=== PATIENT | male | born 1970 | race Two or more races ===

== ENCOUNTER 2024-09-26 17:23 | Inpatient (IN) | payer OTHER ==
[~2024-09-26] VITALS: Ht 162.6 cm; Wt 100.0 kg
--- NOTE | 2024-09-26 17:45 | ED.PDOC ---
History of Present Illness HPI Comments 53-year-old male brought in by EMS presents with a chief complaint of deformity to left leg s/p fall. Patient was standing on a generator changing the AC unit when he slipped and fell to the ground. Patient states that the unit fell onto his leg. Patient has an obvious deformity to his left leg. Patient was given 100mcg of Fentanyl by EMS. Chief Complaint: Fall Injury Time Seen by MD: 17:32 Reviewed Notes: Nurses Notes, Medications, Allergies Allergies: Coded Allergies: NO KNOWN ALLERGIES (Unverified , 09/26/24) Information Source: Patient, Emergency Med Personnel Mode of Arrival: Ambulatory Severity: Moderate Timing: Minutes Duration: Since onset Prehospital treatment: Box Spring Maker, Oxygen, Pain Meds, Treatment Past Medical History PAST MEDICAL HISTORY: Denies Surgical History: Denies all surgeries Family History Family History: Reviewed,noncontributory to illness Social History Smoker: Non-Smoker Alcohol: Occasionally Drugs: Denies Drug Use Lives In: Home Constitutional: denies: chills, diaphoresis, fatigue, fever, malaise, sweats, weakness, others EENTM: denies: blurred vision, double vision, ear bleeding, ear discharge, ear drainage, ear pain, ear ringing, eye pain, eye redness, hearing loss, mouth pain, mouth swelling, nasal discharge, nose bleeding, nose congestion, nose pain, photophobia, tearing, throat pain, throat swelling, voice changes, others Respiratory: denies: cough, hemoptysis, orthopnea, SOB at rest, shortness of breath, SOB with excertion, stridor, wheezing, others Cardiovascular: denies: chest pain, dizzy spells, diaphoresis, Dyspnea on exertion, edema, irregular heart beat, left arm pain, lightheadedness, palpitations, PND, syncope, others Gastrointestinal: denies: abdomen distended, abdominal pain, blood streaked bowels, constipated, diarrhea, dysphagia, difficulty swallowing, hematemesis, melena, nausea, poor appetite, poor fluid intake, rectal bleeding, rectal pain, vomiting, others Genitourinary: denies: burning, dysuria, flank pain, frequency, hematuria, incontinence, penile discharge, penile sore, pain, testicle pain, testicle swelling, urgency, others Neurological: denies: dizziness, fainting, headache, left sided numbness, left sided weakness, numbness, paresthesia, pre-existing deficit, right sided numbness, right sided weakness, seizure, speech problems, tingling, tremors, weakness, others Musculoskeletal: denies: back pain, gout, joint pain, joint swelling, muscle pain, muscle stiffness, neck pain, others Integumetry: reports: wounds (OBVIOUS DEFORMITY TO LEFT LEG); denies: bruises, change in color, change in hair/nails, dryness, laceration, lesions, lumps, rash, others Allergic/Immunocompromised: denies: Difficulty Healing, Frequent Infections, Hives, Itching, others Hematologic/Lymphatic: denies: anemia, blood clots, easy bleeding, easy brui sing, swollen glands, others Endocrine: denies: excessive hunger, excessive sweating, excessive thirst, ex cessive urination, flushing, intolerance to cold, intolerance to heat, unexplained weight gain, unexplained weight loss, others Psychiatric: denies: anxiety, bipolar disorder, depression, hopeless, panic disorder, schizophrenia, sleepless, suicidal, others All Other Systems: Reviewed and Negative Physical Exam General Appearance: Moderate Distress HEENT: Normal ENT Inspection, Pharynx Normal, TMs Normal Neck: Full Range of Motion, Non-Tender, Normal, Normal Inspection Respiratory: Chest Non-Tender, Lungs Clear, No Accessory Muscle Use, No Respiratory Distress, Normal Breath Sounds Cardiovascular: No Edema, No JVD, No Murmur, No Gallop, Normal Peripheral Pulses, Regular Rate/Rhythm Breast Exam: Deferred Gastrointestinal: No Organomegaly, Non Tender, No Pulsatile Mass, Normal Bowel Sounds, Soft Genitalia: Deferred Pelvic: Deferred Rectal: Deferred Extremities: No calf tenderness, Normal capillary refill, No pedal edema Musculoskeletal : Location: Left Extremity Location: Knee Apperance: Swelling, Deformity, Limited ROM, Tenderness: Severe Neurologic: Alert, apprentice cook II-XII nml as Tested, No Motor Deficits, Normal Affect, Normal Mood, No Sensory Deficits Cerebellar Function: Normal Reflexes: Normal Skin: Dry, Normal Color, Warm Lymphatic: No Adenopathy Was a procedure done? Was a procedure done?: No Differential Dx Considerations may include: Fracture, strain, contusion, dislocation X-Ray, Labs, Meds, VS Vital Signs Date Time Temp Pulse Resp B/P (MAP) Pulse Ox O2 Delivery O2 Flow Rate FiO2 09/26/24 19:44 62 12 128/71 09/26/24 18:00 Room Air* 0 21 09/26/24 18:00 98.0 60 20 134/73 (93) 95 98.0 09/26/24 17:45 98.8 64 18 119/76 (90) 94 98.8 Lab Test 09/26/24 18:02 Range/Units White Blood Count 12.1 H 4.4-10.8 10^3/uL Red Blood Count 5.03 4.5-5.90 10^6/uL Hemoglobin 16.4 13.5-17.5 g/dL Hematocrit 46.5 41.0-53.0 % Mean Corpuscular Volume 92.5 80.0-100.0 fL Mean Corpuscular Hemoglobin 32.7 H 28.0-32.0 pg Mean Corpuscular Hemoglobin Concent 35.3 32.0-36.0 g/dL Red Cell Distribution Width 13.3 11.8-14.3 % Platelet Count 220 140-450 10^3/uL Mean Platelet Volume 8.9 6.9-10.8 fL Neutrophils (%) (Auto) 78.6 37.0-80.0 % Lymphocytes (%) (Auto) 12.4 10.0-50.0 % Monocytes (%) (Auto) 7.5 0.0-12.0 % Eosinophils (%) (Auto) 1.1 0.0-7.0 % Basophils (%) (Auto) 0.4 0.0-2.0 % Neutrophils # (Auto) 9.5 H 1.6-8.6 10 ^3/uL Lymphocytes # (Auto) 1.5 0.4-5.4 10 ^3/uL Monocytes # (Auto) 0.9 0-1.3 10 ^3/uL Eosinophils # (Auto) 0.1 0-0.8 10 ^3/uL Basophils # (Auto) 0 0-0.2 10 ^3/uL Nucleated Red Blood Cells 0.0 % Prothrombin Time 10.3 9.3-11.8 sec Prothrombin Time INR 0.97 0.9-1.15 Activated Partial Thromboplast Time 24.8 24.5-34.5 SEC Sodium Level 139 136-145 mmol/L Potassium Level 4.0 3.5-5.1 mmol/L Chloride Level 104 98-107 mmol/L Carbon Dioxide Level 24 20-31 mmol/L Anion Gap 11 5-15 Blood Urea Nitrogen 13 9-23 mg/dL Creatinine 1.04 0.700-1.30 mg/dL Glomerular Filtration Rate Calc 87 >90 mL/min BUN/Creatinine Ratio 12.5 10.0-20.0 Serum Glucose 220 H 74-106 mg/dL Calcium Level 9.4 8.7-10.4 mg/dL Current Medications Medications (Trade) Dose Ordered Sig/Ilan Route Start Time Stop Time Status Last Admin Sodium Chloride 500 ml @ 500 mls/hr Q1H ONCE IV 09/26/24 17:45 09/26/24 18:44 DC 09/26/24 18:00 Hydromorphone HCl (Dilaudid Injection) 1 mg ONCE ONCE IV 09/26/24 19:15 09/26/24 19:16 DC 09/26/24 19:44 Ondansetron HCl (Zofran) 4 mg ONCE ONCE IV 09/26/24 19:15 09/26/24 19:16 DC 09/26/24 19:43 IV Hep-Lock was established The patient was given Dilaudid 1 mg IV push for the pain The patient was given Zofran 4 mg IV push for the nausea The patient was given normal saline at a 500 cc bolus The CBC shows an elevated white blood cell count of 12.1 The rest of the CBC and INR within normal limits X-ray of the left knee shows: FINDINGS/IMPRESSION: There is a displaced fracture extending from the lateral tibial plateau to the medial wall of the proximal tibia proximally 3-4 mm distal to the medial tibial plateau. Nondisplaced fracture of the proximal fibula. The visualized joint space is well maintained. The alignment is anatomical. There is no radiopaque foreign body. An orthopedic surgery consult will be obtained. The patient is being admitted Images Reviewed?: Images reviewed and evaluated by me Time of 1ST Reevaluation: 18:02 Reevaluation 1ST: Unchanged Patient Education/Counseling: Diagnosis, Treatment, Prognosis Family Education/Counseling: Diagnosis, Treatment Departure 1 Departure Time of Disposition: 20:25 Impression: Primary Impression: Tibial plateau fracture, left Qualified Codes: S82.142A - Displaced bicondylar fracture of left tibia, initial encounter for closed fracture Additional Impression: History of fall Disposition: ADMITTED INPATIENT Admit to: Med Surg Condition: Fair Critical Care Note Critical Care Time?: No Stability Stability form required: Yes Unstable for transfer: ED Physician Assesment (Clinical assesment) Heart Score Heart Score: Heart Score Response (Comments) Value History N/A 0 EKG N/A 0 Age N/A 0 Risk Factors N/A 0 Troponin N/A 0 Total 0 I personally scribed for KAM FAGAN MD ([email or web address]) on 09/26/24 at 17:45. Electronically submitted by Raad Gautam ([email or web address]). KAM FAGAN MD Sep 26, 2024 17:45
[2024-09-26] MEDS: SODIUM CHLORIDE 0.9% 500 ML IV ONE (18:00)
[2024-09-26 18:41] LABS: Chloride 104 mmol/L (98-107); Sodium 139 mmol/L (136-145)
[2024-09-26 18:42] LABS: Anion Gap 11 (5-15); Carbon Dioxide 24 mmol/L (20-31)
[2024-09-26 18:43] LABS: Calcium 9.4 mg/dL (8.7-10.4)
[2024-09-26 18:47] LABS: Basophils # (auto) 0 10 ^3/uL (0-0.2); Basophils % (auto) 0.4 % (0.0-2.0); Eosinophils # (auto) 0.1 10 ^3/uL (0-0.8); Eosinophils % (auto) 1.1 % (0.0-7.0); Hematocrit 46.5 % (41.0-53.0); Hemoglobin 16.4 g/dL (13.5-17.5); Lymphocytes # (auto) 1.5 10 ^3/uL (0.4-5.4); Lymphocytes % (auto) 12.4 % (10.0-50.0); Mean Corpuscular Hemoglobin 32.7 pg (28.0-32.0); Mean Corpuscular Hgb Conc. 35.3 g/dL (32.0-36.0); Mean Corpuscular Volume 92.5 fL (80.0-100.0); Monocytes # (auto) 0.9 10 ^3/uL (0-1.3); Monocytes % (auto) 7.5 % (0.0-12.0); Neutrophils # (auto) 9.5 10 ^3/uL (1.6-8.6); Neutrophils % (auto) 78.6 % (37.0-80.0); Platelet Count (auto) 220 10^3/uL (140-450); Red Blood Cells 5.03 10^6/uL (4.5-5.90); Red Cell Distribution Width 13.3 % (11.8-14.3); White Blood Cell 12.1 10^3/uL (4.4-10.8)
[2024-09-26 18:49] LABS: Glucose 220 mg/dL (74-106)
--- NOTE | 2024-09-26 18:52 | DVH ---
CLINICAL INDICATION: fall TECHNIQUE: 3 radiographic views of the left knee were obtained. Comparison: None FINDINGS/IMPRESSION: There is a displaced fracture extending from the lateral tibial plateau to the medial wall of the pro ximal tibia proximally 3-4 mm distal to the medial tibial plateau. Nondisplaced fracture of the proximal fibula. The visualized joint space is well maintained. The alignment is anatomical. There is no radiopaque foreign body.
[2024-09-26 18:58] LABS: INR 0.97 (0.9-1.15); Partial Thromboplastin Time 24.8 SEC (24.5-34.5); Prothrombin Time 10.3 sec (9.3-11.8)
[2024-09-26 19:06] LABS: BUN/Creatinine Ratio 12.5 (10.0-20.0); Blood Urea Nitrogen 13 mg/dL (9-23)
[2024-09-26 19:15] VITALS: O2SAT 95
[2024-09-26] MEDS: ONDANSETRON HCL 4 MG/2 ML VIAL IV ONE (19:43)
[2024-09-26] MEDS: HYDROmorphone HCL 2 MG/ML VL/or syr IV ONE (19:44)
[2024-09-26] MEDS ORDERED: ONDANSETRON HCL 4 MG/2 ML VIAL IV PRN (23:15)
[2024-09-26] MEDS ORDERED: MORPHINE SULFATE INJ 2 MG/ml SYRG IV PRN (23:15)
[2024-09-26] MEDS: SODIUM CHLORIDE 0.9% 1,000 ML IV ONE (23:33)
[2024-09-27] VITALS (9 sets, daily range): BP systolic 106–127; BP diastolic 62–80; PULSE 52–82; RESP 16–20; TEMP 97.3–98.5; O2SAT 95–99
[2024-09-27] MEDS: KETOROLAC TROMETH 30 MG/ML 1ML VIAL IV PRN ×2 (00:04→10:14)
--- NOTE | 2024-09-27 02:45 | DVHHPRES ---
History of Present Illness Resident Creating Document: WILBER GARCIA RESIDENT History of Present Illness Patient is a 53-year-old male with no significant past medical history presented to the ED with a chief complaint of left lower extremity pain. Patient reported he was trying to get something kept on a shelf while climbing onto which generator and he slipped and the generator felt on his left knee following which he had severe onset pain and was not able to lift the leg following which she came to the hospital. Left leg was placed in a splint in the ER. Past medical history: None Past surgical history: None Social history: Denied smoking, occasional alcohol, no drug usage No home medications Review of Systems Review of Systems Patient seen and examined at the bedside Left lower extremity in his splint and bandaged Patient is unable to lift the left leg at the hip joint Reports [id number] pain Allergies: Coded Allergies: NO KNOWN ALLERGIES (Unverified , 09/26/24) Medications Current Medications Medications Dose Ordered Sig/Ilan Route Start Time Stop Time Status Last Admin Dose Admin Ketorolac Tromethamine 15 mg Q6HPRN PRN IV 09/26/24 23:15 10/01/24 23:14 09/27/24 00:04 15 MG Morphine Sulfate 2 mg Q6HPRN PRN IV 09/26/24 23:15 Acetaminophen 650 mg Q6HP PRN PO 09/26/24 23:15 Ondansetron HCl 4 mg Q6HPRN PRN IV 09/26/24 23:15 Exam Vital Signs Vital Signs Date Time Temp Pulse Resp B/P (MAP) Pulse Ox O2 Delivery O2 Flow Rate FiO2 09/26/24 23:00 55 12 136/55 (82) 98 09/26/24 19:15 Room Air* 0 21 09/26/24 19:00 98.2 98.2 Exam Gen - no pallor, no icterus, no cyanosis, no clubbing, no LAD, no edema . Skin - Patients skin is warm and dry. HEENT - normocephalic, atraumatic, moist mucous membranes. Neck - full ROM, no LAD, no JVD Pulmonary - B/L equal breath sounds, no crackles, no wheezing, no stridor. cardiovascular - regular S1,S2 heard, no added sounds, no murmurs heard. peripheral pulses normal radial 2+, pedal 2+. capillary refill normal <2 secs. GI - soft, nontender abdomen. no hepatospleenomegaly. Bowel sounds normoactive Extremities: Left lower extremity bandaged and is in his splint, swollen and tender left knee Neurological - Patient is A/O X 3 . Bilateral upper extremity strength 5/5, right lower extremity strength 5/5, no facial droop, normal speech, no tremor, no sensory deficiets. Labs/Xrays Labs Test 09/26/24 18:02 Range/Units White Blood Count 12.1 H 4.4-10.8 10^3/uL Red Blood Count 5.03 4.5-5.90 10^6/uL Hemoglobin 16.4 13.5-17.5 g/dL Hematocrit 46.5 41.0-53.0 % Mean Corpuscular Volume 92.5 80.0-100.0 fL Mean Corpuscular Hemoglobin 32.7 H 28.0-32.0 pg Mean Corpuscular Hemoglobin Concent 35.3 32.0-36.0 g/dL Red Cell Distribution Width 13.3 11.8-14.3 % Platelet Count 220 140-450 10^3/uL Mean Platelet Volume 8.9 6.9-10.8 fL Neutrophils (%) (Auto) 78.6 37.0-80.0 % Lymphocytes (%) (Auto) 12.4 10.0-50.0 % Monocytes (%) (Auto) 7.5 0.0-12.0 % Eosinophils (%) (Auto) 1.1 0.0-7.0 % Basophils (%) (Auto) 0.4 0.0-2.0 % Neutrophils # (Auto) 9.5 H 1.6-8.6 10 ^3/uL Lymphocytes # (Auto) 1.5 0.4-5.4 10 ^3/uL Monocytes # (Auto) 0.9 0-1.3 10 ^3/uL Eosinophils # (Auto) 0.1 0-0.8 10 ^3/uL Basophils # (Auto) 0 0-0.2 10 ^3/uL Nucleated Red Blood Cells 0.0 % Prothrombin Time 10.3 9.3-11.8 sec Prothrombin Time INR 0.97 0.9-1.15 Activated Partial Thromboplast Time 24.8 24.5-34.5 SEC Sodium Level 139 136-145 mmol/L Potassium Level 4.0 3.5-5.1 mmol/L Chloride Level 104 98-107 mmol/L Carbon Dioxide Level 24 20-31 mmol/L Anion Gap 11 5-15 Blood Urea Nitrogen 13 9-23 mg/dL Creatinine 1.04 0.700-1.30 mg/dL Glomerular Filtration Rate Calc 87 >90 mL/min BUN/Creatinine Ratio 12.5 10.0-20.0 Serum Glucose 220 H 74-106 mg/dL Calcium Level 9.4 8.7-10.4 mg/dL Assessment/Plan Assessment/Plan Left knee displaced tibial fracture and fibular fracture - left knee x-ray shows displaced fracture extending from the lateral tibial plateau to the medial wall of the proximal tibia, nondisplaced fracture of proximal fibula - IV pain management - left knee in his splint and bandaged - ortho consulted - patient NPO except ice chips - IV fluids - RCRI 0 points PUD prophylaxis: Protonix DVT prophylaxis: held for due to possible surgery Goals of care discussed with the patient for over 23 minutes. Full code time spent: 39 minutes Plan discussed with Dr. Pablo Plan discussed with: Patient My Orders Orders - WILBER GARCIA RESIDENT Procedure Category Date Status Time Admit ADMIT 09/26/24 Transmitted 23:11 Stat Ekg For Chest KHURRAM 09/26/24 In Process Pain 23:11 Notify Of Changes KHURRAM 09/26/24 In Process From Base 23:11 Basic Metabolic Panel LAB 09/27/24 Logged 04:00 Complete Blood Count LAB 09/27/24 Logged 04:00 Electrocardigram EKG 09/26/24 Logged 23:11 Ketorolac Injection PHA 09/26/24 In Process (Toradol Injection) 23:15 Morphine Sulfate PHA 09/26/24 In Process Injection 23:15 Acetaminophen Tablet PHA 09/26/24 In Process (Tylenol Tablet) 23:15 Ondansetron Hcl PHA 09/26/24 In Process (Zofran) 23:15 Npo Except Ice Chips KHURRAM 09/26/24 In Process 23:11 Npo (Nothing By DIET 09/27/24 Transmitted Mouth) Diet Breakfast Sodium Chloride 0.9% PHA 09/26/24 In Process 23:15 * Orthopedic Consult CONS 09/26/24 Transmitted 23:11 Date of Service: Sep 26, 2024 Billing Provider: ZACH PABLO MD Common Visit Codes: 17175-[id number] INP/OBS CARE (HIGH) Secondary Visit Codes: 38198-[id number] CARE PLAN 30 MINUTES WILBER GARCIA RESIDENT Sep 27, 2024 02:45
[2024-09-27] MEDS: ACETAMINOPHEN 325 MG TAB PO PRN (02:50)
[2024-09-27] MEDS ORDERED: MORPHINE SULFATE 4 MG/ML SYR/VIAL IV PRN (03:00)
[2024-09-27] MEDS: PANTOPRAZOLE 40 MG/10 ML VIAL INJ IV ONE (03:02)
[2024-09-27] MEDS: KETOROLAC TROMETH 30 MG/ML 1ML VIAL IV ONE (04:37)
[2024-09-27 07:13] LABS: Anion Gap 10 (5-15); Carbon Dioxide 24 mmol/L (20-31); Chloride 105 mmol/L (98-107); Potassium 4.1 mmol/L (3.5-5.1); Sodium 139 mmol/L (136-145)
[2024-09-27 07:17] LABS: Basophils # (auto) 0 10 ^3/uL (0-0.2); Basophils % (auto) 0.4 % (0.0-2.0); Eosinophils # (auto) 0.1 10 ^3/uL (0-0.8); Eosinophils % (auto) 0.4 % (0.0-7.0); Hematocrit 43.5 % (41.0-53.0); Hemoglobin 15.2 g/dL (13.5-17.5); Lymphocytes # (auto) 2.2 10 ^3/uL (0.4-5.4); Lymphocytes % (auto) 18.2 % (10.0-50.0); Mean Corpuscular Hemoglobin 32.6 pg (28.0-32.0); Mean Corpuscular Volume 93.1 fL (80.0-100.0); Monocytes # (auto) 1.3 10 ^3/uL (0-1.3); Monocytes % (auto) 10.7 % (0.0-12.0); Neutrophils # (auto) 8.7 10 ^3/uL (1.6-8.6); Neutrophils % (auto) 70.3 % (37.0-80.0); Nucleated Red Blood Cells % 0.1 %; Platelet Count (auto) 209 10^3/uL (140-450); Red Blood Cells 4.67 10^6/uL (4.5-5.90); Red Cell Distribution Width 13.6 % (11.8-14.3); White Blood Cell 12.3 10^3/uL (4.4-10.8)
[2024-09-27 07:19] LABS: BUN/Creatinine Ratio 13.7 (10.0-20.0); Blood Urea Nitrogen 13 mg/dL (9-23)
[2024-09-27 07:26] LABS: Calcium 8.2 mg/dL (8.7-10.4); Glucose 116 mg/dL (74-106)
--- NOTE | 2024-09-27 13:08 | DVHPNRES ---
Progress Note Date Seen: Sep 27, 2024 Resident Creating Document: JOHNNA WALDORN RESIDENT Has the PT tested + for MRSA If YES, has PT been informed?: No Medical Necessity Reason Pt with a Central, PICC or Fol: No Subjective Review of Systems Patient is a 53-year-old male with no significant past medical history presented to the ED with a chief complaint of left lower extremity pain. Patient reported he was trying to get something kept on a shelf while climbing onto which generator and he slipped and the generator felt on his left knee following which he had severe onset pain and was not able to lift the leg following which she came to the hospital. Left leg was placed in a splint in the ER. Past medical history: None Past surgical history: None Social history: Denied smoking, occasional alcohol, no drug usage No home medications 09/27/2024: xray showed displaced fracture extending from the lateral tibial plateau to the medial wall of the proximal tibia proximally 3-4 mm distal to the medial tibial plateau, Nondisplaced fracture of the proximal fibula.pending ortho consult Objective vital signs Vital Sign Date Time Temp Pulse Resp B/P (MAP) Pulse Ox O2 Delivery O2 Flow Rate FiO2 09/27/24 09:21 98.2 66 18 126/62 (83) 98 98.2 09/27/24 08:00 Room Air* 0 21 Total Intake and Output 09/26/24 09/26/24 09/27/24 15:00 23:00 07:00 Intake Total 500 ml 625 ml Balance 500 ml 625 ml medications Current Medications Medications Dose Ordered Sig/Ilan Route Start Time Stop Time Status Last Admin Dose Admin Acetaminophen 650 mg Q6HP PRN PO 09/26/24 23:15 09/27/24 02:50 650 MG Ondansetron HCl 4 mg Q6HPRN PRN IV 09/26/24 23:15 Pantoprazole Sodium 40 mg DAILY IV 09/28/24 10:00 Ketorolac Tromethamine 30 mg Q6HPRN PRN IV 09/27/24 06:00 10/01/24 23:14 09/27/24 10:14 30 MG Morphine Sulfate 4 mg Q6HPRN PRN IV 09/27/24 03:00 Morphine Sulfate 2 mg Q6HPRN PRN IV 09/27/24 03:30 Examination Gen - no pallor, no icterus, no cyanosis, no clubbing, no LAD, no edema . Skin - Patients skin is warm and dry. HEENT - normocephalic, atraumatic, moist mucous membranes. Neck - full ROM, no LAD, no JVD Pulmonary - B/L equal breath sounds, no crackles, no wheezing, no stridor. cardiovascular - regular S1,S2 heard, no added sounds, no murmurs heard. peripheral pulses normal radial 2+, pedal 2+. capillary refill normal <2 secs. GI - soft, nontender abdomen. no hepatospleenomegaly. Bowel sounds normoactive Extremities: Left lower extremity bandaged and is in his splint, swollen and tender left knee Neurological - Patient is A/O X 3 . Bilateral upper extremity strength 5/5, right lower extremity strength 5/5, no facial droop, normal speech, no tremor, no sensory deficiets. laboratory and microbiology Laboratory Tests 09/27/24 06:06 Test 09/27/24 06:06 Range/Units Serum Glucose 116 #H 74-106 mg/dL Problem List/Assessment/Plan Problem List/Assessment/Plan Left knee displaced tibial fracture and fibular fracture - left knee x-ray shows displaced fracture extending from the lateral tibial plateau to the medial wall of the proximal tibia, nondisplaced fracture of proximal fibula - IV pain management - left knee in his splint and bandaged - ortho consulted - patient NPO except ice chips, ortho stated restart diet - IV fluids - RCRI 0 points PUD prophylaxis: Protonix DVT prophylaxis: held for due to possible surgery Goals of care discussed with the patient for over 23 minutes. Full code time spent: 39 minutes Plan discussed with Dr. Finley Plan discussed with: Patient, Other (rn) My Orders My Orders Orders - JOHNNA WALDRON Procedure Category Date Status Time Discontinue Tele [facility] 09/27/24 In Process 09:22 JOHNNA WALDRON RESIDENT Sep 27, 2024 13:08
[2024-09-27 20:17] LABS: INR 1.03 (0.9-1.15); Prothrombin Time 10.9 sec (9.3-11.8)
[2024-09-28] VITALS (7 sets, daily range): BP systolic 112–140; BP diastolic 63–87; PULSE 49–62; RESP 16–19; TEMP 97.2–98.6; O2SAT 96–99
--- NOTE | 2024-09-28 08:20 | DVH ---
CHEST RADIOGRAPH Indication: CAD Technique: Single frontal view of the chest was obtained Comparison: None FINDINGS: The cardiac silhouette is unremarkable. The lungs demonstrate no pulmonary airspace consolidation. Th e pulmonary vasculature is unremarkable. There is no pleural effusion.. There is no pneumothorax. IMPRESSION: 1. No pulmonary airspace consolidation.
--- NOTE | 2024-09-28 09:16 | DVH ---
CT CT L KNEE WO CONTRAST INDICATION: FRACTURE EXAM DATE: 09/28/2024 07:47 AM COMPARISON: None RADIATION DOSE: CTDIvol: 7.75 mGy, DLP: 214.82 mGy*cm PROCEDURE: Helical CT images were obtained of the left knee without intravenous contrast. Sagittal a nd coronal reconstructions are provided. ADDITIONAL IMAGES: None FINDINGS: BONES: There is a comminuted, depressed fracture of the lateral tibia plateau. There is a non displac ed fracture of the fibula head. JOINT SPACES: Maintained. There is a moderate joint effusion. SOFT TISSUES: There is a moderate joint effusion. There is soft tissue edema. VESSELS: unremarkable. IMPRESSION: There is a comminuted, depressed fracture of the lateral tibia plateau. There is a non displaced frac ture of the fibula head. There is a moderate joint effusion.
[2024-09-28] MEDS: PANTOPRAZOLE 40 MG/10 ML VIAL INJ IV SCH (09:34)
--- NOTE | 2024-09-28 11:45 | DVHDSRES ---
Discharge Summary Date of Admission Resident Creating Document: JOHNNA WALDRON RESIDENT Sep 26, 2024 at 23:11 Date of Discharge: Sep 28, 2024 Admitting Diagnosis #comminuted, depressed fracture of the lateral tibia plateau. Labs/Diagnostic Data: Laboratory Results Test 09/27/24 19:53 09/27/24 06:06 09/26/24 18:02 Prothrombin Time 10.9 sec (9.3-11.8) Prothrombin Time INR 1.03 (0.9-1.15) White Blood Count 12.3 10^3/uL (4.4-10.8) Red Blood Count 4.67 10^6/uL (4.5-5.90) Hemoglobin 15.2 g/dL (13.5-17.5) Hematocrit 43.5 % (41.0-53.0) Mean Corpuscular Volume 93.1 fL (80.0-100.0) Mean Corpuscular Hemoglobin 32.6 pg (28.0-32.0) Mean Corpuscular Hemoglobin Concent 35.0 g/dL (32.0-36.0) Red Cell Distribution Width 13.6 % (11.8-14.3) Platelet Count 209 10^3/uL (140-450) Mean Platelet Volume 8.9 fL (6.9-10.8) Neutrophils (%) (Auto) 70.3 % (37.0-80.0) Lymphocytes (%) (Auto) 18.2 % (10.0-50.0) Monocytes (%) (Auto) 10.7 % (0.0-12.0) Eosinophils (%) (Auto) 0.4 % (0.0-7.0) Basophils (%) (Auto) 0.4 % (0.0-2.0) Neutrophils # (Auto) 8.7 10 ^3/uL (1.6-8.6) Lymphocytes # (Auto) 2.2 10 ^3/uL (0.4-5.4) Monocytes # (Auto) 1.3 10 ^3/uL (0-1.3) Eosinophils # (Auto) 0.1 10 ^3/uL (0-0.8) Basophils # (Auto) 0 10 ^3/uL (0-0.2) Nucleated Red Blood Cells 0.1 % Sodium Level 139 mmol/L (136-145) Potassium Level 4.1 mmol/L (3.5-5.1) Chloride Level 105 mmol/L (98-107) Carbon Dioxide Level 24 mmol/L (20-31) Anion Gap 10 (5-15) Blood Urea Nitrogen 13 mg/dL (9-23) Creatinine 0.95 mg/dL (0.700-1.30) Glomerular Filtration Rate Calc 97 mL/min (>90) BUN/Creatinine Ratio 13.7 (10.0-20.0) Serum Glucose 116 mg/dL (74-106) Hemoglobin A1c 5.8 % A1C (<5.7) Calcium Level 8.2 mg/dL (8.7-10.4) Activated Partial Thromboplast Time 24.8 SEC (24.5-34.5) Other Laboratory Tests 09/27/24 06:06 Brief Hx & Hospital Course: Patient is a 53-year-old male with no significant past medical history presented to the ED with a chief complaint of left lower extremity pain. Patient reported he was trying to get something kept on a shelf while climbing onto which generator and he slipped and the generator felt on his left knee following which he had severe onset pain and was not able to lift the leg following which she came to the hospital. Left leg was placed in a splint in the ER. Past medical history: None Past surgical history: None Social history: Denied smoking, occasional alcohol, no drug usage No home medications 09/27/2024: xray showed displaced fracture extending from the lateral tibial plateau to the medial wall of the proximal tibia proximally 3-4 mm distal to the medial tibial plateau, Nondisplaced fracture of the proximal fibula.pending ortho consult 09/28/2024: ct scan: There is a comminuted, depressed fracture of the lateral tibia plateau. There is a non displaced fracture of the fibula head. There is a moderate joint effusion, patient will be transferred to high level of care for trauma ortho, pending transfer Case discussed with Dr Finley Consults/Reason for consult ortho due to fracture Operations or Procedures CT CT L KNEE WO CONTRAST INDICATION: FRACTURE EXAM DATE: 09/28/2024 07:47 AM COMPARISON: None RADIATION DOSE: CTDIvol: 7.75 mGy, DLP: 214.82 mGy*cm PROCEDURE: Helical CT images were obtained of the left knee without intravenous contrast. Sagittal and coronal reconstructions are provided. ADDITIONAL IMAGES: None FINDINGS: BONES: There is a comminuted, depressed fracture of the lateral tibia plateau. There is a non displaced fracture of the fibula head. JOINT SPACES: Maintained. There is a moderate joint effusion. SOFT TISSUES: There is a moderate joint effusion. There is soft tissue edema. VESSELS: unremarkable. IMPRESSION: There is a comminuted, depressed fracture of the lateral tibia plateau. There is a non displaced fracture of the fibula head. There is a moderate joint effusion. Condition at Discharge: Stable Final Diagnosis/Problems List #sp mechanical fall #comminuted, depressed fracture of the lateral tibia plateau. #non displaced fracture of the fibula head. #moderate joint effusion. Discharge Disposition: Acute Care Facility Discharge Instruct/Medications Diet: Cardiac 2g Na,low cholest Activity: Bed rest Follow Up/Referral: TRANSFER TO [facility] Medications: TRANSFER TO [facility] Discharge Statement: "Patient was advised to return to the ER or call 911 if any headaches, dizziness, shortness of breath, chest pain, abdominal pain, bleeding, fevers, or worsening of medical condition. Patient was counseled about treatment plan, medications, possible side effects, patientverbalized understanding. All questions were answered to the best of my ability. This discharge took greater then 30 minutes in planning, reviewing documentation, counseling the patient, and discussing with other team members." ASSESSMENT ASSESSMENT Assessment There is a comminuted, depressed fracture of the lateral tibia plateau. There is a non displaced fracture of the fibula head. There is a moderate joint effusion. JOHNNA WALDRON RESIDENT Sep 28, 2024 11:45
--- NOTE | 2024-09-28 13:36 | DVHINCON2 ---
Date of service: Sep 28, 2024 Reason for Consultation Left tibial plateau fracture History of Present Illness Mr. Ortez is a 53-year-old male who was brought to the hospital after he s lipped on a generator which landed on top of his left nichols and has been experiencing severe pain in the inability to bear weight on that side since the accident. Patient denied any head trauma, loss of consciousness, chest pain, shortness of breath, nausea, vomiting, fever, or chills. Patient was otherwise feeling well denying any other complaints or concerns during my evaluation. Past Medical History Denies Past Surgical History Denies Family History: FH: cirrhosis G8 MOTHER Family History Noncontributory Social History Patient denies smoking, EtOH, or illicit substance abuse Allergies: Coded Allergies: NO KNOWN ALLERGIES (Unverified , 09/26/24) Current Medications Current Medications Medications (Trade) Dose Ordered Sig/Ilan Route PRN Reason Start Time Stop Time Status Last Admin Pantoprazole Sodium (Protonix) 40 mg DAILY IV 09/28/24 10:00 09/28/24 09:34 Review of Systems 10 point review of systems negative except as per HPI Vital Signs Vital Signs Date Time Temp Pulse Resp B/P (MAP) Pulse Ox O2 Delivery O2 Flow Rate FiO2 09/28/24 13:17 98.3 51 16 122/65 (84) 96 98.3 09/28/24 07:51 Room Air* 0 21 Physical Exam General appearance: A&O x4 in no acute distress HEENT: Normal ENT inspection, pharynx normal, TMs normal Neck: Full range of motion, nontender, normal inspection Respiratory: Chest nontender, without accessory muscle use, no respiratory distress Cardiovascular: No edema, no JVD, normal peripheral pulses Gastrointestinal: Soft, nontender, no organomegaly. Musculoskeletal: Left knee range of motion not fully evaluated as patient remains in long leg posterior leg splint, diffuse edema to the knee, normal capillary refill, no pedal edema, neurovascularly intact. Skin: Dry, normal color, warm Lymphatic: No adenopathy Labs/Diagnostic Data Labs Test 09/27/24 19:53 09/27/24 06:06 09/26/24 18:02 Range/Units Prothrombin Time 10.9 9.3-11.8 sec Prothrombin Time INR 1.03 0.9-1.15 White Blood Count 12.3 H 4.4-10.8 10^3/uL Red Blood Count 4.67 4.5-5.90 10^6/uL Hemoglobin 15.2 13.5-17.5 g/dL Hematocrit 43.5 41.0-53.0 % Mean Corpuscular Volume 93.1 80.0-100.0 fL Mean Corpuscular Hemoglobin 32.6 H 28.0-32.0 pg Mean Corpuscular Hemoglobin Concent 35.0 32.0-36.0 g/dL Red Cell Distribution Width 13.6 11.8-14.3 % Platelet Count 209 140-450 10^3/uL Mean Platelet Volume 8.9 6.9-10.8 fL Neutrophils (%) (Auto) 70.3 37.0-80.0 % Lymphocytes (%) (Auto) 18.2 10.0-50.0 % Monocytes (%) (Auto) 10.7 0.0-12.0 % Eosinophils (%) (Auto) 0.4 0.0-7.0 % Basophils (%) (Auto) 0.4 0.0-2.0 % Neutrophils # (Auto) 8.7 H 1.6-8.6 10 ^3/uL Lymphocytes # (Auto) 2.2 0.4-5.4 10 ^3/uL Monocytes # (Auto) 1.3 0-1.3 10 ^3/uL Eosinophils # (Auto) 0.1 0-0.8 10 ^3/uL Basophils # (Auto) 0 0-0.2 10 ^3/uL Nucleated Red Blood Cells 0.1 % Sodium Level 139 136-145 mmol/L Potassium Level 4.1 3.5-5.1 mmol/L Chloride Level 105 98-107 mmol/L Carbon Dioxide Level 24 20-31 mmol/L Anion Gap 10 5-15 Blood Urea Nitrogen 13 9-23 mg/dL Creatinine 0.95 0.700-1.30 mg/dL Glomerular Filtration Rate Calc 97 >90 mL/min BUN/Creatinine Ratio 13.7 10.0-20.0 Serum Glucose 116 #H 74-106 mg/dL Hemoglobin A1c 5.8 H <5.7 % A1C Calcium Level 8.2 L 8.7-10.4 mg/dL Activated Partial Thromboplast Time 24.8 24.5-34.5 SEC Left knee x-ray reviewed and demonstrated: There is a displaced fracture extending from the lateral tibial plateau to the medial wall of the proximal tibia proximally 3-4 mm distal to the medial tibial plateau. Nondisplaced fracture of the proximal fibula. The visualized joint space is well maintained. The alignment is anatomical. There is no radiopaque foreign body. Left knee CT scan reviewed and demonstrated: There is a comminuted, depressed fracture of the lateral tibia plateau. There is a non displaced fracture of the fibula head. There is a moderate joint effusion. Assessment Left tibial plateau fracture and nondisplaced fibular head fracture Plan/Recommendation I had a lengthy discussion with the patient and his and after discussing his case and reviewing his imaging studies with Dr. Daniels we have recommended that the patient follow up on an outpatient basis with Dr. Ulloa here at the [facility] to discuss a potential surgery. I advised the patient to remain in his long-leg posterior leg splint and to remain with strict limb elevation as well as ice 20 minutes on and 20 minutes off. Patient and understood and agreed. Thank you for allowing us to participate in the care of your patient. Plan discussed with: Patient, Spouse LYNNE CORRIGAN Sep 28, 2024 13:36
[2024-09-28] MEDS ORDERED: NAPR-957 PO (14:16)
[2024-09-29 01:00] VITALS: BP 111/61; PULSE 61; RESP 17; TEMP 97.8; O2SAT 99
[2024-09-29] MEDS: MORPHINE SULFATE 4 MG/ML SYR/VIAL IV PRN (04:32)
[2024-09-29 05:00] VITALS: BP 118/63; PULSE 64; RESP 16; TEMP 98; O2SAT 99
[2024-09-29 07:54] VITALS: PULSE 64; RESP 16; O2SAT 99
[2024-09-29 08:55] VITALS: BP 121/65; PULSE 66; RESP 17; TEMP 98.8; O2SAT 98
[2024-09-29] MEDS: ENOXAPARIN SOD 40 MG/0.4 ML SYRINGE SC SCH (10:18)
--- NOTE | 2024-09-29 10:51 | DVHPNRES ---
Progress Note Date Seen: Sep 29, 2024 Resident Creating Document: ENMA HILL RESMINDI Has the PT tested + for MRSA If YES, has PT been informed?: No Medical Necessity Reason Pt with a Central, PICC or Fol: No Subjective Review of Systems Patient seen and examined at the bedside. Patient is complaining of mild pain at l level of left knee. Objective vital signs Vital Sign Date Time Temp Pulse Resp B/P (MAP) Pulse Ox O2 Delivery O2 Flow Rate FiO2 09/29/24 08:55 98.8 66 17 121/65 (83) 98 98.8 09/29/24 07:54 Room Air* 0 21 Total Intake and Output 09/28/24 09/28/24 09/29/24 15:00 23:00 07:00 Intake Total 700 ml 300 ml Output Total 950 ml Balance 700 ml -650 ml medications Current Medications Medications Dose Ordered Sig/Ilan Route Start Time Stop Time Status Last Admin Dose Admin Acetaminophen 650 mg Q6HP PRN PO 09/26/24 23:15 09/27/24 02:50 650 MG Ondansetron HCl 4 mg Q6HPRN PRN IV 09/26/24 23:15 Pantoprazole Sodium 40 mg DAILY IV 09/28/24 10:00 09/29/24 10:17 40 MG Ketorolac Tromethamine 30 mg Q6HPRN PRN IV 09/27/24 06:00 10/01/24 23:14 09/29/24 10:18 30 MG Morphine Sulfate 4 mg Q6HPRN PRN IV 09/27/24 03:00 Morphine Sulfate 2 mg Q6HPRN PRN IV 09/27/24 03:30 09/29/24 04:32 2 MG Enoxaparin Sodium 40 mg DAILY SC 09/29/24 10:00 09/29/24 10:18 40 MG Examination Gen - no pallor, no icterus, no cyanosis, no clubbing, no LAD, no edema . Skin - Patients skin is warm and dry. HEENT - normocephalic, atraumatic, moist mucous membranes. Neck - full ROM, no LAD, no JVD Pulmonary - B/L equal breath sounds, no crackles, no wheezing, no stridor. cardiovascular - regular S1,S2 heard, no added sounds, no murmurs heard. peripheral pulses normal radial 2+, pedal 2+. capillary refill normal <2 secs. GI - soft, nontender abdomen. no hepatospleenomegaly. Bowel sounds normoactive Extremities: Left lower extremity bandaged and is in his splint, swollen and tender left knee Neurological - Patient is A/O X 3 . Bilateral upper extremity strength 5/5, right lower extremity strength 5/5, no facial droop, normal speech, no tremor, no sensory deficiets. laboratory and microbiology Laboratory Tests 09/27/24 06:06 Test 09/27/24 06:06 Range/Units Serum Glucose 116 #H 74-106 mg/dL Labs and/or images reviewed: Labs reviewed by me, Image(s) reviewed by me Problem List/Assessment/Plan Problem List/Assessment/Plan - left knee x-ray shows displaced fracture extending from the lateral tibial plateau to the medial wall of the proximal tibia, nondisplaced fracture of proximal fibula - IV pain management - left knee in his splint and bandaged - ortho consulted - patient NPO except ice chips, ortho stated restart diet - IV fluids - RCRI 0 points PUD prophylaxis: Protonix DVT prophylaxis: held for due to possible surgery Goals of care discussed with the patient for over 23 minutes. Full code time spent: 39 minutes Patient was accepted at [facility], but due to transportation problem patient's family denied to go to the [facility]. Patient family requesting for transferring to the [facility]. 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 Plan discussed with Dr. Finley Plan discussed with: Patient, Other (RN) ENMA HILL [facility] Sep 29, 2024 10:51
[2024-09-29 12:50] VITALS: BP 129/81; PULSE 72; RESP 17; TEMP 98.1; O2SAT 97
[2024-09-29] MEDS ORDERED: IBUP1TAB5 PO (14:34)
[2024-09-29] MEDS ORDERED: ASPI81CH49 PO (14:34)
--- NOTE | 2024-09-29 14:35 | DVHDSRES ---
Discharge Summary Date of Admission Resident Creating Document: ENMA HILL RESDIENT Sep 26, 2024 at 23:11 Date of Discharge: Sep 28, 2024 Labs/Diagnostic Data: Laboratory Results Test 09/27/24 19:53 09/27/24 06:06 09/26/24 18:02 Prothrombin Time 10.9 sec (9.3-11.8) Prothrombin Time INR 1.03 (0.9-1.15) White Blood Count 12.3 10^3/uL (4.4-10.8) Red Blood Count 4.67 10^6/uL (4.5-5.90) Hemoglobin 15.2 g/dL (13.5-17.5) Hematocrit 43.5 % (41.0-53.0) Mean Corpuscular Volume 93.1 fL (80.0-100.0) Mean Corpuscular Hemoglobin 32.6 pg (28.0-32.0) Mean Corpuscular Hemoglobin Concent 35.0 g/dL (32.0-36.0) Red Cell Distribution Width 13.6 % (11.8-14.3) Platelet Count 209 10^3/uL (140-450) Mean Platelet Volume 8.9 fL (6.9-10.8) Neutrophils (%) (Auto) 70.3 % (37.0-80.0) Lymphocytes (%) (Auto) 18.2 % (10.0-50.0) Monocytes (%) (Auto) 10.7 % (0.0-12.0) Eosinophils (%) (Auto) 0.4 % (0.0-7.0) Basophils (%) (Auto) 0.4 % (0.0-2.0) Neutrophils # (Auto) 8.7 10 ^3/uL (1.6-8.6) Lymphocytes # (Auto) 2.2 10 ^3/uL (0.4-5.4) Monocytes # (Auto) 1.3 10 ^3/uL (0-1.3) Eosinophils # (Auto) 0.1 10 ^3/uL (0-0.8) Basophils # (Auto) 0 10 ^3/uL (0-0.2) Nucleated Red Blood Cells 0.1 % Sodium Level 139 mmol/L (136-145) Potassium Level 4.1 mmol/L (3.5-5.1) Chloride Level 105 mmol/L (98-107) Carbon Dioxide Level 24 mmol/L (20-31) Anion Gap 10 (5-15) Blood Urea Nitrogen 13 mg/dL (9-23) Creatinine 0.95 mg/dL (0.700-1.30) Glomerular Filtration Rate Calc 97 mL/min (>90) BUN/Creatinine Ratio 13.7 (10.0-20.0) Serum Glucose 116 mg/dL (74-106) Hemoglobin A1c 5.8 % A1C (<5.7) Calcium Level 8.2 mg/dL (8.7-10.4) B-Type Natriuretic Peptide 18.35 pg/mL (0-100) Activated Partial Thromboplast Time 24.8 SEC (24.5-34.5) Other Laboratory Tests 09/27/24 06:06 Condition at Discharge: Stable Final Diagnosis/Problems List #sp mechanical fall#comminuted, depressed fracture of the lateral tibia plateau. #non displaced fracture of the fibula head. #moderate joint effusion. Discharge Disposition: Acute Care Facility Discharge Instruct/Medications Diet: Cardiac 2g Na,low cholest Activity: Bed rest Follow Up/Referral: Follow up with the PCP within 1 week of the discharge. Follow up with Orthopedics (Dr. Kong Dainels), on outpatient basis for surgery. Medications: Tablet aspirin 81 mg twice daily for 10 days Tablet ibuprofen 600 mg twice daily as needed for the pain Discharge Statement: "Patient was advised to return to the ER or call 911 if any headaches, dizziness, shortness of breath, chest pain, abdominal pain, bleeding, fevers, or worsening of medical condition. Patient was counseled about treatment plan, medications, possible side effects, patientverbalized understanding. All questions were answered to the best of my ability. This discharge took greater then 30 minutes in planning, reviewing documentation, counseling the patient, and discussing with other team members." ASSESSMENT ASSESSMENT Assessment #sp mechanical fall#comminuted, depressed fracture of the lateral tibia plateau. #non displaced fracture of the fibula head. #moderate joint effusion. ENMA HILL RESDIENT Sep 29, 2024 14:35
--- NOTE | 2024-09-29 15:06 | DVHPNRES ---
Progress Note Date Seen: Sep 29, 2024 Resident Creating Document: ENMA HILL RESDIENT Has the PT tested + for MRSA If YES, has PT been informed?: No Medical Necessity Reason Pt with a Central, PICC or Fol: No Subjective Review of Systems Patient seen examined at the bedside. Patient is feeling better since admission but still complained of left knee pain. Objective vital signs Vital Sign Date Time Temp Pulse Resp B/P (MAP) Pulse Ox O2 Delivery O2 Flow Rate FiO2 09/29/24 12:50 98.1 72 17 129/81 (97) 97 98.1 09/29/24 07:54 Room Air* 0 21 Total Intake and Output 09/28/24 09/28/24 09/29/24 15:00 23:00 07:00 Intake Total 700 ml 300 ml Output Total 950 ml Balance 700 ml -650 ml medications Current Medications Medications Dose Ordered Sig/Ilan Route Start Time Stop Time Status Last Admin Dose Admin Acetaminophen 650 mg Q6HP PRN PO 09/26/24 23:15 09/27/24 02:50 650 MG Ondansetron HCl 4 mg Q6HPRN PRN IV 09/26/24 23:15 Pantoprazole Sodium 40 mg DAILY IV 09/28/24 10:00 09/29/24 10:17 40 MG Ketorolac Tromethamine 30 mg Q6HPRN PRN IV 09/27/24 06:00 10/01/24 23:14 09/29/24 10:18 30 MG Morphine Sulfate 4 mg Q6HPRN PRN IV 09/27/24 03:00 Morphine Sulfate 2 mg Q6HPRN PRN IV 09/27/24 03:30 09/29/24 04:32 2 MG Enoxaparin Sodium 40 mg DAILY SC 09/29/24 10:00 09/29/24 10:18 40 MG Examination Gen - no pallor, no icterus, no cyanosis, no clubbing, no LAD, no edema . Skin - Patients skin is warm and dry. HEENT - normocephalic, atraumatic, moist mucous membranes. Neck - full ROM, no LAD, no JVD Pulmonary - B/L equal breath sounds, no crackles, no wheezing, no stridor. cardiovascular - regular S1,S2 heard, no added sounds, no murmurs heard. peripheral pulses normal radial 2+, pedal 2+. capillary refill normal <2 secs. GI - soft, nontender abdomen. no hepatospleenomegaly. Bowel sounds normoactive Extremities: Left lower extremity bandaged and is in his splint, swollen and tender left knee Neurological - Patient is A/O X 3 . Bilateral upper extremity strength 5/5, right lower extremity strength 5/5, no facial droop, normal speech, no tremor, no sensory deficiets. laboratory and microbiology Laboratory Tests 09/27/24 06:06 Test 09/27/24 06:06 Range/Units Serum Glucose 116 #H 74-106 mg/dL Labs and/or images reviewed: Labs reviewed by me, Image(s) reviewed by me Problem List/Assessment/Plan Problem List/Assessment/Plan - left knee x-ray shows displaced fracture extending from the lateral tibial plateau to the medial wall of the proximal tibia, nondisplaced fracture of proximal fibula - IV pain management - left knee in his splint and bandaged - ortho consulted - patient NPO except ice chips, ortho stated restart diet - IV fluids - RCRI 0 points PUD prophylaxis: Protonix DVT prophylaxis: held for due to possible surgery Goals of care discussed with the patient for over 23 minutes. Full code time spent: 39 minutes Patient was accepted at [facility], but due to transportation problem patient's family denied to go to the [facility]. Patient family requesting for transferring to the [facility]. Case discussed with Dr. Daniels, recommended outpatient basis follow up. Plan discussed with Dr. Finley Plan discussed with: Patient, Other (RN) My Orders My Orders Orders - ENMA HILL Procedure Category Date Status Time Discharge DISCHARGE 09/29/24 Transmitted 14:57 ENMA HILL RESDIGRAEME Sep 29, 2024 15:06
[2024-09-29 18:26] VITALS: BP 123/76; PULSE 77; RESP 18; TEMP 98; O2SAT 96
== END 2024-09-29 19:00 | disposition home or self-care (01) | DRG 563 ==
LOC: EDBD 17:23 → ER 17:38 → WEST WING 22:13 → OVERFLOW 23:11 → WEST WING 09-27 02:11 → TELE-WESTW 09-27 04:30
PROVIDERS: ADMIT Student in an Organized Health Care Education/Training Program; ATTEND Emergency Medicine
DX: S82.142A Displaced bicondylar fracture of left tibia, initial encounter for closed fracture (principal); S82.832A Other fracture of upper and lower end of left fibula, initial encounter for closed fracture; W01.0XXA Fall on same level from slipping, tripping and stumbling without subsequent striking against object, initial encounter; Y93.89 Activity, other specified; Y92.89 Other specified places as the place of occurrence of the external cause; Y99.8 Other external cause status
CPT/HCPCS: 36415; 71045; 73562; 73700; 80048; 83036; 83880; 85025; 85610; 85730; 96361; 96374; 96375; G0378; J1885; J2405; J2470